=== PATIENT | female | born 1985 | race Caucasian/White ===

== ENCOUNTER 2023-05-28 05:21 | Emergency (ER) | payer OTHER, SELFPAY ==
--- NOTE | ~2023-05-28 | CT_ITS ---
CT of the Abdomen and Pelvis: Indication: Abdominal pain Technique: 2.5 mm axial scans were obtained through the abdomen and pelvis following intravenous adm inistration of 100 cc of Omnipaque 350. Dose reduction technique was used on this scan by utilizing a utomated exposure control and iterative reconstruction technique. The dose-length product (DLP) was 2 42.29 mGy-cm. Findings: Scans through the lung bases are unremarkable. The liver, spleen, pancreas, adrenals and kidneys are within normal limits. Gallbladder appears to be absent. No evidence of aortic aneurysm. No lymphadenopathy. No bowel obstruction or bowel wall thickening. There is evidence of probable prior bariatric surgery. Normal appendix. Images through the pelvis were performed. Urinary bladder unremarkable. Probable 3.5 cm right adnexal cyst.. No ascites. Impression: 3.5 cm adnexal cyst. No other significant findings. Reviewed, dictated and finalized at [facility]. Impression: 3.5 cm adnexal cyst. No other significant findings.
[2023-05-28 05:24] VITALS: BP 118/48; PULSE 73; RESP 18; TEMP 36.7; O2SAT 98
--- NOTE | 2023-05-28 05:39 | ED.GENADULT ---
HPI - General Adult General Chief complaint: Abdominal Pain <Jessee Rodriguez DO - Last Filed: 05/30/23 14:39> Stated complaint: Abdominal Pain <Jessee Rodriguez DO - Last Filed: 05/30/23 14:39> Time Seen by Provider: 05/28/23 06:57 <Jessee Rodriguez DO - Last Filed: 05/30/23 14:39> History of Present Illness HPI narrative: Swetha is a 37F with a PMH of anxiety, gastric bypass, and PUD with subsequent rupture and surgery 3 years ago that presented to the ED with abdominal pain. She reports central dull pain around the umbilicus that is TTP but does not radiate. She is nauseated but has not vomited. No diarrhea, dysuria, hematuria, CP, dyspnea or fevers. <Jessee Rodriguez DO - Last Filed: 05/30/23 14:39> Related Data Home medications: Home Medications Medication Instructions Recorded Confirmed cholecalciferol (vitamin D3) 25 2,000 unit PO DAILY 06/18/19 05/28/23 mcg (1,000 unit) capsule (Vitamin D3) cyanocobalamin (vitamin B-12) 1,000 mcg IM DAILY 06/18/19 05/28/23 1,000 mcg/mL injection solution alprazolam 0.5 mg tablet 0.5 mg PO PRN PRN Anxiety 05/28/23 05/28/23 trazodone 50 mg tablet See Rx Instructions .Route .COMPLEX 05/28/23 05/28/23 <Jessee Rodriguez DO - Last Filed: 05/30/23 14:39> Allergies/adverse reactions: Allergies Allergy/AdvReac Type Severity Reaction Status Date / Time No Known Allergies Allergy Unknown Verified 05/28/23 05:25 <Jessee Rodriguez DO - Last Filed: 05/30/23 14:39> Review of Systems Review of Systems: All systems reviewed & are unremarkable except as noted in HPI and below <Jessee Rodriguez DO - Last Filed: 05/30/23 14:39> PMFSH Past Medical History Medical History: Medical History Anxiety Gastric ulcer with hemorrhage and perforation Obesity (BMI 30-39.9) <Jessee Rodriguez DO - Last Filed: 05/30/23 14:39> Surgical History Surgical History: Surgical History History of laparotomy Hx of cholecystectomy Hx of gastric bypass <Jessee Rodriguez DO - Last Filed: 05/30/23 14:39> Family History Family History: Family History Grandparent No problems noted. Mother Cervical cancer <Jessee Rodriguez DO - Last Filed: 05/30/23 14:39> Social History Social History: Social History Smoking status: Former smoker Second hand tobacco smoke exposure: Yes Smoking end date: 08/13/11 Alcohol intake: never Substance use: never Gender identity (if verbalized by the patient): Female Spiritual care concerns: No <Jessee Rodriguez DO - Last Filed: 05/30/23 14:39> Exam Const: General: healthy appearing, no acute distress and alert <Jessee Rodriguez DO - Last Filed: 05/30/23 14:39> Nutritional Appearance: well nourished <Jessee Rodriguez DO - Last Filed: 05/30/23 14:39> Orientation/consciousness: patient oriented x3 <Jessee Rodriguez DO - Last Filed: 05/30/23 14:39> Limitations: no limitations <Jessee Rodriguez DO - Last Filed: 05/30/23 14:39> HENMT: Head: normal to inspection <Jessee Rodriguez DO - Last Filed: 05/30/23 14:39> Ears: external ears normal <Jessee Rodriguez DO - Last Filed: 05/30/23 14:39> Eyes: Conjunctivae: conjunctivae normal <Jessee Rodriguez DO - Last Filed: 05/30/23 14:39> Pupils: Equal, round and reactive pupils present <DO Munir Morse Last Filed: 05/30/23 14:39> EOM: EOMs intact bilaterally <Jessee Rodriguez, DO - Last Filed: 05/30/23 14:39> Neck: Neck: normal visual inspection <Jessee Rodriguez DO - Last Filed: 05/30/23 14:39> Chest: Chest palpation & inspection: normal inspection of the chest <Jessee Rodriguez, DO - Last Filed: 05/30/23 14:39> Resp: Effort & Inspection: normal respiratory effort <Jessee
[2023-05-28] MEDS: MORPHINE SULFATE (*CRX) 4 MG/ML INJ IV PUSH (05:48)
[2023-05-28] MEDS: ONDANSETRON INJ 4 MG/2 ML VIAL IV PUSH (05:48)
[2023-05-28 06:00] LABS: Appearance Urine Clear (Clear); Bilirubin Urine 1+ (Negative); Blood Urine 3+ (Negative); Color Urine Yellow (Yellow); Glucose Urine UA Negative (Negative); Ketones Urine Trace (Negative); Leukocyte Esterase Ur Trace LEU/UL (Negative); Nitrate Urine Negative (Negative); Protein Urine Negative (Negative); Specific Grav Ur >= 1.030 (1.010-1.020); Urobilinogen Urine 0.2 mg/dL (0.2-1.0); pH Urine 5.5 (5.0-8.0)
[2023-05-28 06:04] LABS: Basophils Absolute Auto 0.03 K/mm3 (0.00-0.10); Basophils Percent Auto 0.7 % (0.0-1.0); Eosinophils Absolute Auto 0.17 K/mm3 (0.02-0.50); Eosinophils Percent Auto 3.7 % (1.0-6.0); Hematocrit 35.4 % (35.0-49.0); Hemoglobin 11.6 g/dL (12.0-15.0); Immature Granulocyte Absolute 0.01 K/mm3 (0.00-0.00); Immature Granulocyte Percent A 0.2 % (0.0-0.0); Lymphocytes Absolute Auto 1.52 K/mm3 (1.10-4.50); Mean Corpuscular HGB Conc 32.8 g/dL (32.0-36.0); Mean Corpuscular Hemoglobin 26.5 pg (27.0-31.0); Mean Corpuscular Volume 80.8 fL (78.0-102.0); Mean Platelet Volume 10.3 fl (9.2-11.8); Monocytes Percent Auto 6.5 % (2.0-11.0); Neutrophils Absolute Auto 2.6 K/mm3 (1.7-7.2); Neutrophils Percent Auto 55.9 % (50.0-70.0); Platelet Count Result 154 K/mm3 (150-420); Red Blood Count 4.38 M/mm3 (4.20-5.40); White Blood Count 4.6 K/mm3 (4.8-10.8)
[2023-05-28 06:06] LABS: Add Urine Microscopic? YES; Bacteria Urine 1+ /hpf; Mucus Urine Few /lpf; Squamous Epithelial Cell Urine Few /hpf (Few)
[2023-05-28 06:06] LABS: Pregnancy On Board Control Positive; Urine Pregnancy Test Negative
[2023-05-28 06:16] LABS: INR 1.1; Prothrombin Time 11.5 Seconds (9.50-12.10)
[2023-05-28 06:19] LABS: Alanine Aminotransferase 14 U/L (14-59); Albumin Level 3.3 g/dL (3.4-5.0); Alkaline Phosphatase 66 U/L (46-116); Anion Gap 7 mmol/L (8-16); Aspartate Amino Transferase 31 U/L (15-37); Bilirubin,Total 0.8 mg/dL (0.00-1.00); Blood Urea Nitrogen 9 mg/dL (7-18); Calcium 9.1 mg/dL (8.5-10.1); Carbon Dioxide 28 mmol/L (21-32); Chloride 107 mmol/L (98-108); Estimated CRCL calculation 64 ml/min; Estimated Glomerular Filt Rate > 60; Glucose 87 mg/dL (70-99); Lipase 21 U/L (16-77); Osmolality Calculated 291 mOsm/kg (285-295); Potassium 3.5 mmol/L (3.5-5.1); Sodium 142 mmol/L (136-145); Total Protein 6.7 g/dL (6.4-8.2)
[2023-05-28 06:21] LABS: CRP < 0.5 mg/dL (0.0-0.9)
[2023-05-28 06:22] LABS: Lactic Acid Reflex 0.4 mmol/L (0.4-2.0)
[2023-05-28 06:54] LABS: Influenza A QL RT-PCR Negative (Negative); Influenza B QL RT-PCR Negative (Negative); SARS-CoV-2 RNA PCR Negative (Negative)
[2023-05-28 06:57] LABS: RSV RNA, RT-PCR Negative (Negative)
[2023-05-28 07:12] VITALS: BP 118/59; PULSE 61; RESP 16; TEMP 36.8; O2SAT 100
== END 2023-05-28 07:15 | disposition home or self-care (01) ==
PROVIDERS: Family Medicine; Emergency Provider Student in an Organized Health Care Education/Training Program; PCP Family Medicine
DX: R10.33 Periumbilical pain (principal); Z79.899 Other long term (current) drug therapy; Z87.891 Personal history of nicotine dependence; Z20.822 Contact with and (suspected) exposure to COVID-19
CPT/HCPCS: 36415; 74177; 80053; 81001; 81025; 83605; 83690; 85025; 85610; 86140; 87086; 87637; 96374; 96375; 99284; J2270; J2405; Q9967

== ENCOUNTER 2023-07-27 20:35 | Emergency (ER) | payer SELFPAY ==
--- NOTE | ~2023-07-27 | CT_ITS ---
EXAMINATION: CT abdomen pelvis w con DATE: 07/27/2023 21:35 INDICATION: 2 days of diffuse abdominal pain TECHNIQUE: Computed tomography (CT) of the abdomen and pelvis was performed with 100 mL Omnipaque-350 intravenous contrast. Automated exposure control and iterative reconstruction technique were employe d. The dose-length product was 268.73 mGy-cm. COMPARISON: 05/28/2023 and 03/22/2018 FINDINGS: Minimal discoid atelectasis at the bilateral lower lobes. Heart size is normal. No pericardial or ple ural effusion. Postoperative change of prior Ned-en-Y gastric bypass procedure. Gallbladder is not v isualized and likely surgically absent. Liver, spleen, pancreas, bilateral adrenal glands and kidneys are normal. No bowel obstruction. Normal appendix. No significant change in chronic 1.7 cm 4.0 cm ri ght adnexal cysts. Bladder and anteverted uterus are unremarkable. No free intraperitoneal gas or flu id. No pathologically enlarged abdominal or pelvic lymphadenopathy. Mild lower thoracic spondylosis. IMPRESSION: 1. No acute intra-abdominal/pelvic process. Normal appendix. 2. A couple chronic right adnexal cysts the larger measuring 4.0 cm. Reviewed, dictated and finalized at location A. [facility] TH[employer]
[2023-07-27 20:49] VITALS: BP 141/81; PULSE 68; RESP 18; TEMP 37.1; O2SAT 100
[2023-07-27 20:50] LABS: Basophils Absolute Auto 0.03 K/mm3 (0.00-0.10); Basophils Percent Auto 0.4 % (0.0-1.0); Eosinophils Absolute Auto 0.17 K/mm3 (0.02-0.50); Eosinophils Percent Auto 2.4 % (1.0-6.0); Hematocrit 38.1 % (35.0-49.0); Hemoglobin 12.4 g/dL (12.0-15.0); Immature Granulocyte Absolute 0.01 K/mm3 (0.00-0.00); Immature Granulocyte Percent A 0.1 % (0.0-0.0); Lymphocytes Absolute Auto 2.44 K/mm3 (1.10-4.50); Lymphocytes Percent Auto 34.4 % (18.0-42.0); Mean Corpuscular HGB Conc 32.5 g/dL (32.0-36.0); Mean Corpuscular Hemoglobin 26.6 pg (27.0-31.0); Mean Corpuscular Volume 81.8 fL (78.0-102.0); Mean Platelet Volume 9.9 fl (9.2-11.8); Monocytes Absolute Auto 0.46 K/mm3 (0.10-0.90); Monocytes Percent Auto 6.5 % (2.0-11.0); Neutrophils Percent Auto 56.2 % (50.0-70.0); Platelet Count Result 183 K/mm3 (150-420); Red Blood Count 4.66 M/mm3 (4.20-5.40); Red Cell Distribution Width 13.4 % (11.6-14.4); White Blood Count 7.1 K/mm3 (4.8-10.8)
[2023-07-27 20:51] LABS: Appearance Urine Clear (Clear); Bilirubin Urine Negative (Negative); Blood Urine Negative (Negative); Color Urine Light Yellow (Yellow); Glucose Urine UA Negative (Negative); Ketones Urine Negative (Negative); Leukocyte Esterase Ur Negative LEU/UL (Negative); Nitrate Urine Negative (Negative); Protein Urine Negative (Negative); Specific Grav Ur <= 1.005 (1.010-1.020); Urobilinogen Urine 0.2 mg/dL (0.2-1.0)
[2023-07-27 20:52] LABS: Add Urine Microscopic? NO
[2023-07-27] MEDS: ONDANSETRON INJ 4 MG/2 ML VIAL IV PUSH (20:55)
[2023-07-27] MEDS: SODIUM CHLORIDE 0.9% IV 1,000 ML 999 ML IV CONT (21:03)
[2023-07-27] MEDS: MORPHINE SULFATE (*CRX) 4 MG/ML INJ IV PUSH ×2 (21:04→21:53)
[2023-07-27 21:05] LABS: Alanine Aminotransferase 24 U/L (14-59); Albumin Level 3.7 g/dL (3.4-5.0); Alkaline Phosphatase 84 U/L (46-116); Anion Gap 4 mmol/L (8-16); Aspartate Amino Transferase 21 U/L (15-37); Bilirubin,Total 0.4 mg/dL (0.00-1.00); Blood Urea Nitrogen 8 mg/dL (7-18); Calcium 9.1 mg/dL (8.5-10.1); Carbon Dioxide 31 mmol/L (21-32); Chloride 101 mmol/L (98-108); Estimated CRCL calculation 55 ml/min; Estimated Glomerular Filt Rate > 60; Glucose 97 mg/dL (70-99); Lipase 29 U/L (16-77); Osmolality Calculated 280 mOsm/kg (285-295); Potassium 3.5 mmol/L (3.5-5.1); Sodium 136 mmol/L (136-145); Total Protein 7.4 g/dL (6.4-8.2)
[2023-07-27 21:08] LABS: Lactic Acid Reflex 0.7 mmol/L (0.4-2.0)
[2023-07-27 21:13] LABS: Pregnancy On Board Control Positive; Urine Pregnancy Test Negative
[2023-07-27 22:00] VITALS: BP 132/76; PULSE 88; RESP 18
[2023-07-27] MEDS: MAG HYDROX/ALUMINUM HYD/SIMETH 30 ML, PHENobarb/HYOSCY/ATROPINE/SCOP 32.4 MG, LIDOCAINE... PO (22:09)
--- NOTE | 2023-07-27 22:16 | ED.ABDPAIN ---
HPI - Abdominal Pain General Chief Complaint: Abdominal Pain Stated Complaint: Abd Pain Time Seen by Provider: 07/27/23 20:36 Source: patient Mode of arrival: ambulatory Limitations: no limitations History of Present Illness HPI narrative: Patient is a 38 year old female with a significant PMH that presents today with abdominal pain. Patient states that she has a history stomach ulceration 4 years ago. She does take daily Protonix. She has had abdominal pain for the last day. She states yesterday she was started also on pain hit her hard. She states that the pain is generalized. He denies any constipation or diarrhea. Denies any blood in the stool. MD elicited complaint: abdominal pain Pertinent past history: gastrointestinal bleeding Onset (ago): day(s) (1) Pain Consistency: constant Location: diffuse Severity: moderate Pain scale (0-10): 5 Quality: cramping and stabbing Radiation: none Migration to: no migration Exacerbating factors: nothing Relieving factors: nothing Associated symptoms: denies other symptoms Related Data Home Medications Medication Instructions Recorded Confirmed omeprazole 40 mg capsule,delayed 40 mg PO DAILY 07/27/23 07/27/23 release Allergies Allergy/AdvReac Type Severity Reaction Status Date / Time No Known Allergies Allergy Unknown Verified 05/28/23 05:25 Review of Systems Review of Systems: All systems reviewed & are unremarkable except as noted in HPI and below Constitutional: Constitutional: Reports no additional constitutional complaints Eyes: Eyes: Reports no additional eye complaints ENT: Reports system reviewed and no additional complaints, except as documented Cardiovascular: Cardiovascular: Reports no additional cardiovascular complaints Respiratory: Respiratory: Reports no additional respiratory complaints Gastrointestinal: Gastrointestinal: Reports as per HPI, Reports abdominal pain, Reports heartburn and Reports nausea Genitourinary: Genitourinary: Reports no additional female genitourinary complaints Musculoskeletal: Musculoskeletal: Reports no additional musculoskeletal complaints Integumentary/Breasts: Skin/Breast: Reports system reviewed and no additional complaints, except as docu Neurologic: Reports system reviewed and no additional complaints, except as documented Psychiatric: Psychiatric: Reports no additional psychiatric complaints Endocrine: Endocrine: Reports no additional endocrine complaints Hematologic/Lymphatic: Hematologic/Lymphatic: Reports no additional hematologic/lymphatic complaints PMFSH Past Medical History Medical History Anxiety Gastric ulcer with hemorrhage and perforation Obesity (BMI 30-39.9) Surgical History Surgical History History of laparotomy Hx of cholecystectomy Hx of gastric bypass Family History Family History Grandparent No problems noted. Mother Cervical cancer Social History Social History Smoking status: Former smoker Second hand tobacco smoke exposure: Yes Smoking end date: 08/13/11 Alcohol intake: never Substance use: never Gender identity (if verbalized by the patient): Female Spiritual care concerns: No Exam Const: General: healthy appearing Nutritional Appearance: well nourished Orientation/consciousness: patient oriented x3 HENMT: Head: normal to inspection Ears: external ears normal Face/Nose/Sinus: Normal external nose present Face and sinus: normal facial exam Mouth: Yes Normal oral and palatal mucosa present Teeth and gingiva: dentition normal Throat: posterior oropharynx normal Eyes: Conjunctivae: conjunctivae normal Pupils: Equal, round and reactive pupils present EOM: EOMs intact bilaterally Neck: Neck: normal visual inspection Ches
[2023-07-27 22:59] VITALS: BP 108/50; PULSE 67; RESP 18; TEMP 36.6; O2SAT 99
== END 2023-07-27 23:05 | disposition home or self-care (01) ==
PROVIDERS: Emergency Provider Family Medicine; PCP Family Medicine
DX: K52.9 Noninfective gastroenteritis and colitis, unspecified (principal); Z87.891 Personal history of nicotine dependence
CPT/HCPCS: 36415; 74177; 80053; 81003; 81025; 83605; 83690; 85025; 96361; 96374; 96375; 96376; 99284; A9270; J2270; J2405; J7030; Q9967

== ENCOUNTER 2025-06-15 09:43 | Emergency (ER) | payer OTHER, SELFPAY ==
--- NOTE | ~2025-06-15 | CT_ITS ---
CT abdomen pelvis w con Clinical History: R abd pain, hx gastric surgery . Comparison: CT abdomen pelvis 07/27/2023 Technique: Axial images lung bases to symphysis pubis IV contrast information not listed in PACS Coronal, sagittal reformats CT images acquired with automatic exposure control for dose reduction DLP: 293 mGy-cm Findings: Lung bases: Clear. Visualized heart and pericardium: Unremarkable. Liver: Steatosis. Mild biliary ductal dilatation after cholecystectomy. Gallbladder: Unremarkable. Spleen: Unremarkable. Pancreas: Unremarkable. Adrenal glands: Unremarkable. Kidneys: Right kidney- No hydronephrosis. No renal stones. Left kidney- No hydronephrosis. No renal stones. Distal esophagus/stomach: Gastric bypass. Mild wall thickening of excluded stomach but under-distended. Small bowel loops: Normal caliber and wall thickness. Colon: Normal caliber and wall thickness. Normal RLQ appendix. Nodes: No enlarged nodes. Peritoneum: No ascites. No free air. Urinary bladder: Unremarkable. Uterus: Unremarkable. Adnexa: No masses. Cystic focus right side pelvis persists. Bones: No acute bony abnormality. Soft tissues: Unremarkable. Aorta: No aneurysm or dissection. IVC: Unremarkable. Main portal vein/SMV/splenic vein: Patent. IMPRESSION: 1. Suspect gastritis of excluded stomach (gastric bypass surgery). 2. Otherwise no acute abnormality. Reviewed, dictated and finalized at location R. DULING REPRESENTATIVE
[2025-06-15 09:56] VITALS: BP 128/56; PULSE 71; RESP 18; TEMP 36.9; O2SAT 100
--- NOTE | 2025-06-15 10:13 | ED_ITS ---
HPI - Abdominal Pain General Chief Complaint: Abdominal Pain Stated Complaint: RLQ pain since yesterday. Time Seen by Provider: 06/15/25 09:53 Source: patient Mode of arrival: ambulatory Limitations: no limitations History of Present Illness HPI narrative: Patient is a 40-year-old female, with past medical history of gastric bypass surgery and cholecystectomy 8 years ago, PUD with hx of gastric perforation, who presents the ED with report of right-sided abdominal pain. Patient reports she frequently has issues with acid reflux since her gastric surgery. She does take omeprazole. She reports having slight discomfort in her right-sided abdomen yesterday, but reports having worsening pain throughout her right mid to upper abdomen since around 3:00 a.m. this morning. Denies nausea, vomiting, diarrhea, constipation or rectal bleeding, melena, fevers. Patient does note that she took a few doses of ibuprofen 2 weeks ago for dental infection. Related Data Home Medications ?Medication ?Instructions ?Recorded ?Confirmed ?Last Taken ?Type omeprazole 40 mg capsule,delayed 40 mg PO DAILY 07/27/23 Unknown History release Allergies Allergy/AdvReac Type Severity Reaction Status Date / Time No Known Allergies Allergy Unknown Verified 06/15/25 09:44 Review of Systems 2 Review of Systems: All systems reviewed & are unremarkable except as noted in HPI. All systems reviewed & are unremarkable except as noted in HPI and below PMFSH Past Medical History Medical History Gastric ulcer with hemorrhage and perforation Anxiety Obesity (BMI 30-39.9) Surgical History Surgical History (Updated 06/15/25 @ 14:22 by Alma Rojas PA-C) History of laparotomy Hx of cholecystectomy Hx of gastric bypass Family History Family History Grandparent No problems noted. Mother Cervical cancer Social History Social History Smoking status: Former smoker Second hand tobacco smoke exposure: Yes Smoking end date: 08/13/11 Alcohol intake: never Substance use: never Gender identity (if verbalized by the patient): Female Spiritual care concerns: No Exam 2 Narrative: GENERAL: Well appearing, well-nourished, non-toxic, in no acute distress. HEAD: Normocephalic, atraumatic. RESPIRATORY: Airway patent, respirations nonlabored. Clear to auscultation bilaterally, no rales, rhonchi, wheezing. CARDIOVASCULAR: Regular rate and rhythm without murmurs, rubs, or gallops. ABDOMINAL: Soft, mild tenderness in R mid/lateral abdomen, no rebound, nondistended. Normoactive BS. MUSCULOSKELETAL: Moves all extremities. No gross deformities. SKIN: Warm, dry, normal color. NEURO: A&O X3. Speech clear. Cranial nerves II-XII grossly intact. Steady gait. No ataxic movements. PSYCHIATRIC: Appropriate mood and affect. Normal interaction. Course Vital Signs Vital signs: Vital Signs Temperature 98.4 F 06/15/25 09:56 Pulse Rate 71 06/15/25 09:56 Respiratory Rate 18 06/15/25 09:56 Blood Pressure 128/56 L 06/15/25 09:56 Pulse Oximetry 100 06/15/25 09:56 Oxygen Delivery Room Air 06/15/25 09:56 Temperature 98.4 F 06/15/25 09:56 Pulse Rate 54 L 06/15/25 14:44 Respiratory Rate 18 06/15/25 14:44 Blood Pressure 101/63 06/15/25 14:44 Pulse Oximetry 100 06/15/25 14:44 Oxygen Delivery Room Air 06/15/25 09:56 MDM - Abdominal Pain MDM Narrative Medical decision making narrative: Patient presented to ED with R sided abd pain since yesterday, worsening this morning. Hx of gastric bypass, PUD with perforated ulcer. VSS upon arrival. Patient in no acute distress. Laboratory studies without leukocytosis. Mild anemia noted. Appears fairly similar to previous records, but no recent records to compare to. Denying any recent bleeding, rectal bleeding, melena. CMP is unremarkable. Normal LFTs and lipase. Lactic acid within normal range at 0.8. Stable electrolytes. UA w/o signs of infection. EKG w/ NSR no ischemic changes. Trop undetectable. CT scan of abdomen/pelvis was obtained, showing suspected gastritis of the excluded stomach with mild wall thickening. Discussed case with Dr. Aragon, GI, recommended f/u for endoscopy, but will also need f/u with bariatric surgery for eval of excluded stomach. Discussed lab and imaging findings, GI recommendations. She is feeling improved with supportive therapy. She is on omeprazole. Will start patient on sucralfate for additional gastritis relief. Discussed avoiding NSAIDs, aggravating foods/drinks. Discussed close follow-up with GI. Discussed strict return precautions. Patient is in agreement with plan, feels comfortable going home. Requesting work note. Discharged in stable condition. Medical Records Attestation: I reviewed the patient's medical records. Lab Data Attestation: I reviewed the patient's lab results. 06/15/25 10:12 06/15/25 10:12 Labs: Lab Results 06/15/25 06/15/25 06/15/25 Range/Units 10:12 10:18 11:24 WBC 7.0 (4.5-10.0) K/mm3 RBC 4.53 (4.2-5.4) M/mm3 Hgb 10.7 L (12.0-15.0) g/dL Hct 34.7 L (37.0-47.0) % MCV 76.6 L (80-100) fl MCH 23.6 L (26-34) pg MCHC 30.8 L (32-36) g/dl RDW 14.7 H (11.5-14.5) % Plt Count 226 (150-375) k/mm3 MPV 10.3 (7.4-10.4) fl Immature Gran % (Auto) 0.1 (0-0.5) % Neut % (Auto) 63.5 (45.5-73.1) % Lymph % (Auto) 24.5 (18.3-44.2) % Crawford % (Auto) 7.2 (2.6-8.5) % Eos % (Auto) 4.3 (0-4.4) % Baso % (Auto) 0.4 (0.2-1.2) % Lymph # (Auto) 1.71 (0.9-3.2) K/mm3 Crawford # (Auto) 0.5 (0.1-0.6) K/mm3 Eos # (Auto) 0.3 (0-0.3) K/mm3 Baso # (Auto) 0.0 (0.0-0.1) K/mm3 Abs Immat Gran (auto) 0.01 (0.00-0.031) K/mm3 Absolute Neuts (auto) 4.4 (1.3-6.7) K/mm3 Absolute Nucleated RBC 0.000 (0.0-0.012) K/mm3 Nucleated RBC % 0.0 (0.0-0.2) % Sodium 139 (137-145) mmol/L Potassium 3.8 (3.4-5.0) mmol/L Chloride 106 (98-107) mmol/L Carbon Dioxide 25 (22-30) mmol/L Anion Gap 8 (4-12) mmol/L BUN 14 (7-17) mg/dL Creatinine 0.81 (0.7-1.0) mg/dL Estim Creat Clear Calc 73 ml/min Estimated GFR > 60 (59 - ) Glucose 75 (65-110) mg/dL Lactic Acid 0.9 (0.7-2.0) mmol/L Calcium 9.4 (8.4-10.2) mg/dL Total Bilirubin 0.4 (0.2-1.3) mg/dL AST 32 (14-36) U/L ALT 14 (6-35) U/L Alkaline Phosphatase 76 (38-126) U/L Troponin I < 0.012 (0.000-0.034) ng/mL Total Protein 7.7 (6.3-8.2) g/dL Albumin 4.2 (3.5-5.1) g/dL Lipase 77 (23-300) U/L Urine Color Yellow (Yellow) Urine Appearance Clear (Clear) Urine pH 6.5 (5.0-9.0) Ur Specific [place] 1.021 (1.001-1.035) Urine Protein Negative (Negative) mg/dL Urine Glucose (UA) Negative (Negative) mg/dL Urine Ketones Negative (Negative) mg/dL Ur Blood (Man) Negative (Negative) Urine Nitrate Negative (Negative) Urine Bilirubin Negative (Negative) Urine Urobilinogen 2.0 H (<2.0) mg/dL Add Ur Microanalysis Reviewed Leukocyte Esterase Rfl 1+ H (Negative) MIHAI/UL Urine RBC 0-2 (0-2) /hpf Urine WBC 0-5 (0-3) /hpf Ur Squamous Epith Cells Occasional (Few) /hpf Urine Bacteria None seen /hpf Urine Casts 0-2 POC Urine HCG, Qual (Negative) 06/15/25 Range/Units 11:42 WBC (4.5-10.0) K/mm3 RBC (4.2-5.4) M/mm3 Hgb (12.0-15.0) g/dL Hct (37.0-47.0) % MCV (80-100) fl MCH (26-34) pg MCHC (32-36) g/dl RDW (11.5-14.5) % Plt Count (150-375) k/mm3 MPV (7.4-10.4) fl Immature Gran % (Auto) (0-0.5) % Neut % (Auto) (45.5-73.1) % Lymph % (Auto) (18.3-44.2) % Crawford % (Auto) (2.6-8.5) % Eos % (Auto) (0-4.4) % Baso % (Auto) (0.2-1.2) % Lymph # (Auto) (0.9-3.2) K/mm3 Crawford # (Auto) (0.1-0.6) K/mm3 Eos # (Auto) (0-0.3) K/mm3 Baso # (Auto) (0.0-0.1) K/mm3 Abs Immat Gran (auto) (0.00-0.031) K/mm3 Absolute Neuts (auto) (1.3-6.7) K/mm3 Absolute Nucleated RBC (0.0-0.012) K/mm3 Nucleated RBC % (0.0-0.2) % Sodium (137-145) mmol/L Potassium (3.4-5.0) mmol/L Chloride (98-107) mmol/L Carbon Dioxide (22-30) mmol/L Anion Gap (4-12) mmol/L BUN (7-17) mg/dL Creatinine (0.7-1.0) mg/dL Estim Creat Clear Calc ml/min Estimated GFR (59 - ) Glucose (65-110) mg/dL Lactic Acid (0.7-2.0) mmol/L Calcium (8.4-10.2) mg/dL Total Bilirubin (0.2-1.3) mg/dL AST (14-36) U/L ALT (6-35) U/L Alkaline Phosphatase (38-126) U/L Troponin I (0.000-0.034) ng/mL Total Protein (6.3-8.2) g/dL Albumin (3.5-5.1) g/dL Lipase (23-300) U/L Urine Color (Yellow) Urine Appearance (Clear) Urine pH (5.0-9.0) Ur Specific [place] (1.001-1.035) Urine Protein (Negative) mg/dL Urine Glucose (UA) (Negative) mg/dL Urine Ketones (Negative) mg/dL Ur Blood (Man) (Negative) Urine Nitrate (Negative) Urine Bilirubin (Negative) Urine Urobilinogen (<2.0) mg/dL Add Ur Microanalysis Leukocyte Esterase Rfl (Negative) MIHAI/UL Urine RBC (0-2) /hpf Urine WBC (0-3) /hpf Ur Squamous Epith Cells (Few) /hpf Urine Bacteria /hpf Urine Casts POC Urine HCG, Qual Negative (Negative) Imaging Data Attestation: I personally reviewed and interpreted this imaging study as follows: Radiologist's impression: ITS Impressions Abdomen/Pelvis CT 06/15/25 12:17 IMPRESSION: 1. Suspect gastritis of excluded stomach (gastric bypass surgery). 2. Otherwise no acute abnormality. ECG Data EKG #1: Attestation: I personally reviewed and interpreted this ECG as follows: ECG completion date: 06/15/25 ECG completion time: 10:48 normal rate (61), sinus rhythm and no ST changes Discharge Plan Discharge Clinical Impression: History of gastric bypass Gastritis Qualifiers: Gastritis type: unspecified gastritis Chronicity: acute Gastritis bleeding: w [facility] bleeding Qualified Code(s): K29.00 - Acute gastritis without bleeding Patient Disposition: Home Condition: Stable Instructions: Antibiotic Form, Gastritis (ED), Diet for Stomach Ulcers and Gastritis (ED), Gastroenteritis (ED), Acute Nausea and Vomiting (ED) Additional Instructions: Continue omeprazole daily. Take sucralfate as prescribed for additional management of gastritis. You will likely need to follow-up with a GI specialist for endoscopy. You can follow-up with our GI specialists here, but also recommend follow-up with a bariatric specialist for evaluation of your bypassed stomach. Avoid NSAIDs, acidic foods, alcohol. Return to the ED if you experience worsening or severe pain, unable to keep down food or drink, blood in stool, dark black stools, persistent fevers, difficulty breathing, or any other symptoms of concern. Patient Language: Swedish Prescriptions: New sucralfate 1 gram tablet 1 g PO QID Qty: 120 0RF No Action omeprazole 40 mg Capsule,Delayed Release(Dr/Ec) 40 mg PO DAILY Follow-up/Referrals: Dejan Aragon MD [Physician, Gastroenterology] Referral Note: DENY Estrada,MD Leonel [Primary Care Provider, Family Practice] Stand Alone Forms: Work/School Release IP Time of Disposition: 14:22
[2025-06-15] MEDS: ONDANSETRON INJ 4 MG/2 ML VIAL IV PUSH (10:18)
[2025-06-15] MEDS: FAMOTIDINE 20 MG/2 ML VIAL IV PUSH (10:18)
[2025-06-15] MEDS: SODIUM CHLORIDE 0.9% IV 1,000 ML 999 ML IV CONT ×2 (10:19→12:01)
[2025-06-15] MEDS: MORPHINE SULFATE (*CRX) 4 MG/ML INJ IV PUSH ×2 (10:19→11:32)
[2025-06-15 10:22] LABS: Hematocrit 34.7 % (37.0-47.0); Hemoglobin 10.7 g/dL (12.0-15.0); Immature Granulocyte Percent A 0.1 % (0-0.5); Lymphocytes Absolute Auto 1.71 K/mm3 (0.9-3.2); Mean Corpuscular HGB Conc 30.8 g/dl (32-36); Mean Corpuscular Hemoglobin 23.6 pg (26-34); Mean Corpuscular Volume 76.6 fl (80-100); Nucleated Red Blood Cells Absolute Auto 0.000 K/mm3 (0.0-0.012); Nucleated Red Blood Cells Perc 0.0 % (0.0-0.2); Platelet Count Result 226 k/mm3 (150-375); Red Blood Count 4.53 M/mm3 (4.2-5.4); White Blood Count 7.0 K/mm3 (4.5-10.0)
--- OUTSIDE RECORDS SUMMARY | 2025-06-15 10:27 | XMS_ITS | Clinical Summary ---
Author Organization [facility] Address [address] [place] [address] Care Team Providers Care Technical Agronomist Name Role Phone Leonel Estrada MD Primary Care Provider Trice Pat MD Unavailable [phone] Allergies No known active allergies Medications multivitamin capsule Take 1 capsule by mouth daily Active acetaminophen 500 mg capsuleIndicati ons:Pain Take 2 capsules (1,000 mg total) by mouth every 6 (six) hours as needed for pain 30 tablet 12/15/2019 Active ferrous sulfate 325 mg (65 mg of elemental iron) tablet Take by mouth 12/07/2017 Ac tive omeprazole (PriLOSEC) 20 mg capsule Take 1 capsule (20 mg total) by mouth 2 (two) times a day Active polyethylene glycol (MIRALAX) 17 gram/dose bulk powder Take 17 g by mouth daily Active cyanocobalamin, vitamin B-12, 500 mcg tablet,disinteg rating Place 500 mcg under the tongue daily Active calcium carbonate-vitam in D3 1,250 mg (500 mg elemental)-125 unit per tabletIndicatio ns:Hypocalcemia Prevention,Prev ention of Vitamin D Deficiency Take 2 tablets by mouth 3 (three) times a day with meals Active docusate sodium (COLACE) 100 mg capsuleIndicati ons:constipatio n Take 1 capsule (100 mg total) by mouth 2 (two) times a day 30 capsule 07/30/2023 Active Active Problems Problem Noted Date Diagnosed Date Small bowel obstruction 11/15/2023 Partial small bowel obstruction 07/28/2023 History of gastric bypass 12/15/2019 GERD (gastroesophageal reflux disease) 0 Perforated ulcer 12/12/2019 Overview (12/12/2019): Added automatically from request for surgery [id number] Peritonitis 12/12/2019 Overview (12/12/2019): Added automatically from request for surgery [id number] Surgical History Surgery Date Site/Laterality Comments LAPAROSCOPIC GASTRIC BYPASS 08/13/2016 - 08/12/2017 Dr Lawrence Ornelas LAPAROSCOPIC CHOLECYSTECTOMY 08/13/2016 - 08/12/2017 During gastric bypass DIAGNOSTIC LAPAROSCOPY with internal hernia repair DIAGNOSTIC LAPAROSCOPY with viviana patch Medical History Medical History Date Comments Morbid obesity (HCC) Preop wt - 263lb (BMI 46.7), opal 157lb (BMI 27.8) GERD (gastroesophageal reflux disease) On PPI Family History Medical History Relation Name Comments Heart disease Paternal Grandfather triple bypass Relation Name Status Comments Paternal Grandfather Social History Tobacco Use Types Packs/Day Years Used Date Smoking Tobacco: Former Smokeless Tobacco: Never Comments:quit >10y prior, <0 .25PPD Alcohol Use Standard Drinks/Week Comments Yes 0 (1 standard drink = 0.6 oz pur e alcohol) occasional AUDIT-C Answer Date Recorded Q1: How often do you have a drink containing alc ohol? Monthly or less 07/29/2023 Q2: How many drinks containi ng alcohol do you have on a typical day when you are drinking? 3 or 4 07/29/2023 Q3: How often do you have si x or more drinks on one occasion? Less than monthly 07/29/2023 PHQ-2 Answer Date Recorded PHQ-2 Total Score (If total score is 3 or more points, staff should administer the PHQ-9) 0 11/15/2023 Personal Safety Answer Date Recorded Have you ever been in or are you currently in a harmful physical or emotional relationship or is someone making you feel afraid or unsafe? Denies 11/15/2023 Comments No Sex and Gender Information Value Date Recorded Sex Assigned at Not on file Legal Sex Female 6:58 AM CDT Gender Identity Not on file Sexual Orientation Not on file Last Filed Vital Signs Vital Sign Reading Time Taken Comments Blood Pressure 102/50 11/17/2023 10:00 AM CDT Pulse 76 11/17/2023 10:00 AM CDT Temperature 36.6 C (97.9 F) 11/17/2023 10:00 AM CDT Respiratory Rate 18 11/17/2023 10:00 AM CDT Oxygen Saturation 100% 11/17/2023 10:00 AM CDT Inhaled Oxygen Concentration - - Weight 61.2 kg (135 lb) 11/15/2023 4:25 PM CDT Height 160 cm (5' 2.99) 11/15/2023 4:25 PM CDT Body Mass Index 23.92 11/15/2023 4:25 PM CDT Plan of Treatment Health Maintenance Due Date Last Done Comments Breast Cancer Screening-Mammogram 1983 Cervical Cancer Screening 1983 Hepatitis C Screening 1983 DTaP/Tdap/Td Vaccine (1 - Tdap) 1994 Varicella Vaccines (1 of 2 - 13+ 2-dose series) 1996 Hepatitis B Screening 2001 Regular Well Visit/Exam 18-64 2001 HPV Vaccines (1 - 3-dose SCD M series) 2010 Depression Screening 11/13/2024 11/14/2023 Influenza Vaccine (#1) 2025 Pneumococcal vaccine <65 Aged Out No longer eligible based on patient's age to complete this topic Insurance IDPA Advance Directives For more information, please contact: [phone] * Full Code (Latest Code Status on File) Date Activated Date Inactivated Comments 11/15/2023 4:24 PM 11/17/2023 7:08 PM * Full Code Date Activated Date Inactivated Comments 07/28/2023 9:47 PM 07/30/2023 4:29 PM * Full Code Date Activated Date Inactivated Comments 12/12/2019 10:59 AM 12/15/2019 4:42 PM Care Teams Technical Agronomist Relationship Specialty Start Date End Date Leonel Estrada MD [address] [place] [id number] PCP - General Family Medicine 07/30/23 Trice Pat MD [address] [phone] [place] [address] Fellow General Surgery 11/17/23
--- OUTSIDE RECORDS SUMMARY | 2025-06-15 10:27 | XMS_ITS | Clinical Summary ---
Author Organization [facility] Address [facility] [place] [address] Care Team Providers Care Records Management Manager Name Role Phone Unavailable Primary Care Provider Unavailabl e Source Comments [facility],non-owned Affiliates and Associated Physician Practices is amultiple site organization consisting of ambulatory clinics and hospital sitesin [place], [place], [place] and [place]. This disclosure is being madepursuant to the Care Everywhere program and may not contain all information available regarding this patient. Last updated 18.[facility] Allergies No known active allergies Medications * Be aware that medications may not be up to date on this document. Alwaysverify current medications with the patient. ferrous sulfate 325 (65 FE) MG tablet 8 Active VIT W/ FE BISG-FA PO 8 Active omeprazole (PRILOSEC) 10 MG capsule Active Ergocalciferol (VITAMIN D2 PO) 8 Active aspirin (ASPIRIN) 81 MG chew tablet Take 81 mg by mouth once daily Active insulin NPH (HUMULIN N; NOVOLIN N) vial Inject 16 Units subcutaneously at bedtime Active Active Problems Problem Noted Date Diagnosed Date History of gastric bypass 02/11/2019 Resolved Problems Problem Noted Date Diagnosed Date Resolved Date IUGR (intrauterine growth re striction) affecting care of mother, third trimester, not applicable or unspecified fetus 06/09/201910/2018 complicated by fet al multicystic dysplastic kidney 05/05/2019 07/15/2019 Depression screening - Initi al at [facility] on 03.10.2019 03/10/2019 07/15/2019 Overview (06/09/2019): 03/10/2019 Swetha Felix was screened for depression using the [place] Depression Scale (EPDS) at her [facility] initial evaluation on 03/10/2019. Her initial score at baseline was 0. Based off of her score of 0, Swetha does not warrant follow up with [facility] licensed social worker, aV Millan. Patient will continue to be screened throughout , at intervals no closer than two weeks, for continued surveillance and early identification of depression until delivery. Patient reports mental health history. Diagnoses include major depressive disorder and borderline personality disorder. 05.05.19: Follow-up EPDS score=0 06.09.19: Follow-up EPDS score = 0 abnormality in pregnan cy - Unilateral dysplastic kidney with dominant cysts 02/18/2019 Overview (06/10/2019): Images from the original note were not included. [facility] PATIENT--PLEASE CALL [phone] (ex 2) IF TRIAGED OR ADMITTED Care Provider: Dr. Linda Christine [facility] consultants involved: RN-Jourdan/Hedy; MFM- Radha; Urology-Kirby Diagnosis: Unilateral (Right) dysplastic kidney with dominant cysts follow up: per Urology consult on 03.10: - deliver at location of choice - antibiotic prophylaxis recommended given unclear clinical course / dx - RBUS and clinic visit at >2do but < 1mo - is likely to need VCUG and / or renal scan over the first 2-3 months of life to ascertain an exact diagnosis. - contact for further recommendation if the PNUS appearance of the right or left kidney change significantly on future surveillance Vp Medical: Lupis David in [place], [place] Planned surveillance: Routine care with OB. Twice weekly testing (BPP/NST) starting at 32 weeks for IUGR, GDM at [place]. Repeat growth in 2 weeks (at 38 weeks) Delivery location: [place] Mode: Per usual OB indications GA: 39 weeks (or sooner as clinically indicated) Python Django Developer Concerns: Care plan based on evaluation and is subject to change based on assessment. See Images or Cardiac under Chart Review for US/ ECHO/ MRI reports. AMA (advanced maternal age) multigravida 35+ 9 07/15/2019 Social History Tobacco Use Types Packs/Day Years Used Date Smoking Tobacco: Never Smokeless Tobacco: Never Alcohol Use Standard Drinks/Week Comments No 0 (1 standard drink = 0.6 oz pur e alcohol) Comments No Sex and Gender Information Value Date Recorded Sex Assigned at Female 07/30/2023 6:18 PM SCORER HELPER Legal Sex Female 9:17 AM CDT Gender Identity Female 07/30/2023 6:18 PM SCORER HELPER Sexual Orientation Straight 07/30/2023 6: 18 PM SCORER HELPER Last Filed Vital Signs Vital Sign Reading Time Taken Comments Blood Pressure 106/59 06/24/2019 11:31 AM SCORER HELPER Pulse 73 06/24/2019 11:31 AM SCORER HELPER Temperature - - Respiratory Rate - - Oxygen Saturation - - Inhaled Oxygen Concentration - - Weight 89 kg (196 lb 3.4 oz) 06/09/2019 10:40 AM CDT Height 160 cm (5' 3) 03/10/2019 11:00 AM CDT Body Mass Index 34.76 03/10/2019 11:00 AM CDT Plan of Treatment Health Maintenance Due Date Last Done Comments LIPID TESTING 1983 MAMMOGRAM 1983 HIV SCREENING 1998 HEPATITIS C SCREENING 05/31/2001 DTAP/TDAP/TD VACCINES (1 - Tdap) 2002 HEPATITIS B VACCINE (1 of 3 - 19+ 3-dose series) 2002 HPV VACCINE (1 - 3-dose SCDM series) 2010 DEPRESSION SCREENING 08/13/2024 COVID-19 VACCINE (1 - 2023-2 5 season) 2025 INFLUENZA VACCINE (#1) 2025 ZOSTER VACCINE (1 of 2) 2033 HIB VACCINE Aged Out No longer eligi ble based on patient's age to complete this topic MENINGOCOCCAL (Group B) VACC INE SHARED DECISION-MAKING Aged Out No longer eligibl e based on patient's age to complete this topic MENINGOCOCCAL GROUPS A/C/Y/W VACCINE Aged Out No longer eligible b ased on patient's age to complete this topic PNEUMOCOCCAL VACCINE Aged Out No long er eligible based on patient's age to complete this topic Insurance ANTH
[2025-06-15 10:34] LABS: Alanine Aminotransferase 14 U/L (6-35); Albumin Level 4.2 g/dL (3.5-5.1); Alkaline Phosphatase 76 U/L (38-126); Anion Gap 8 mmol/L (4-12); Aspartate Amino Transferase 32 U/L (14-36); Bilirubin,Total 0.4 mg/dL (0.2-1.3); Blood Urea Nitrogen 14 mg/dL (7-17); Calcium 9.4 mg/dL (8.4-10.2); Carbon Dioxide 25 mmol/L (22-30); Chloride 106 mmol/L (98-107); Estimated CRCL calculation 73 ml/min; Estimated Glomerular Filt Rate > 60; Glucose 75 mg/dL (65-110); Lipase 77 U/L (23-300); Potassium 3.8 mmol/L (3.4-5.0); Sodium 139 mmol/L (137-145); Total Protein 7.7 g/dL (6.3-8.2)
--- NOTE | 2025-06-15 10:42 | ECG_ITS ---
Test Date: 2025-06-15 10:48:49 Measurements Intervals Downs Rate: 61 P: 54 [place]: 129 QRS: 74 QRSD: 88 T: 62 QT: 399 QTc: 403 Interpretive Statements SINUS RHYTHM No previous ECG available for comparison Electronically Signed On 06-15-2025 11:24:39 RETAIL ASSOCIATE MANAGER BILINGUAL by Trevon Flanagan M.D.
--- NOTE | 2025-06-15 10:45 | PC.NURSE ---
Patient began complaining of extreme pain in her abdomen under her rib cage. Provider aware and EKG ordered
--- OUTSIDE RECORDS SUMMARY | 2025-06-15 11:19 | XMS_ITS | Clinical Summary ---
Author Organization [facility] Address [facility] [place] [address] Care Team Providers Care Apiculturist Name Role Phone Unavailable Primary Care Provider Unavailabl e Source Comments [facility],non-owned Affiliates and Associated Physician Practices is amultiple site organization consisting of ambulatory clinics and hospital sitesin [place], [place], [place] and [place]. This disclosure is being madepursuant to the Care Everywhere program and may not contain all information available regarding this patient. Last updated 18.[facility] Allergies No known active allergies Medications * [...] 07/15/2019 Depression screening - Initi al at [facility] on 03.10.2019 03/10/2019 07/15/2019 Overview (06/09/2019): 03/10/2019 Swetha Felix was screened for depression using the [place] Depression Scale (EPDS) at her [facility] initial evaluation on 03/10/2019. Her initial score at baseline was 0. Based off of her score of 0, Swetha does not warrant follow up with [facility] marriage and family social worker, Va Millan. Patient will continue to be screened [...] from the original note were not included. [facility] PATIENT--PLEASE CALL [phone] (ex 2) IF TRIAGED OR ADMITTED Care Provider: Dr. Lnida Christine [facility] consultants involved: RN-Jourdan/Hedy; MFM- Radha; Urology-Kirby Diagnosis: [...] left kidney change significantly on future surveillance Bead Maker: Lupis David in [place], [place] Planned surveillance: Routine care with OB. Twice weekly testing (BPP/NST) starting at 32 weeks for IUGR, GDM at [facility]. Repeat growth in 2 weeks (at 38 weeks) Delivery location: [place] Mode: Per usual OB indications GA: 39 weeks (or sooner as clinically indicated) [employer] Concerns: Care plan based on evaluation and [...] Sex Assigned at Female 07/30/2023 6:18 PM MOBILE PARAMEDICAL EXAMINER Legal Sex Female 9:17 AM CDT Gender Identity Female 07/30/2023 6:18 PM MOBILE PARAMEDICAL EXAMINER Sexual Orientation Straight 07/30/2023 6: 18 PM MOBILE PARAMEDICAL EXAMINER Last Filed Vital Signs Vital Sign Reading Time Taken Comments Blood Pressure 106/59 06/24/2019 11:31 AM MOBILE PARAMEDICAL EXAMINER Pulse 73 06/24/2019 11:31 AM MOBILE PARAMEDICAL EXAMINER Temperature - - Respiratory Rate - - [...]
--- OUTSIDE RECORDS SUMMARY | 2025-06-15 11:19 | XMS_ITS | Clinical Summary ---
Author Organization [facility] Address [address] [place] [address] Care Team Providers Care Extracorporeal Circulation Specialist Name Role Phone Leonel Estrada MD Primary Care Provider Trice Pat MD Unavailable [phone] Allergies No known active allergies Medications multivitamin [...] (12/12/2019): Added automatically from request for surgery [id number] Peritonitis 12/12/2019 Overview (12/12/2019): Added automatically from request for surgery [id number] Surgical History Surgery Date Site/Laterality Comments LAPAROSCOPIC [...] Advance Directives For more information, please contact: [phone] * Full Code (Latest Code Status on File) Date Activated Date Inactivated Comments 11/15/2023 4:24 PM 11/17/2023 7:08 PM * Full Code Date Activated Date Inactivated Comments 07/28/2023 9:47 PM 07/30/2023 4:29 PM * Full Code Date Activated Date Inactivated Comments 12/12/2019 10:59 AM 12/15/2019 4:42 PM Care Teams Extracorporeal Circulation Specialist Relationship Specialty Start Date End Date Leonel Estrada MD [address] [place] [id number] PCP - General Family Medicine 07/30/23 Trice Pat MD [address] [phone] [place] [address] Fellow General Surgery 11/17/23
[2025-06-15 11:26] VITALS: BP 103/50; PULSE 63; RESP 16; O2SAT 100
[2025-06-15 11:27] LABS: Troponin I < 0.012 ng/mL (0.000-0.034)
[2025-06-15 11:48] LABS: BEDSIDEPREGUCG Negative (Negative)
[2025-06-15 11:55] LABS: Add Urine Microscopic? YES; Appearance Urine Clear (Clear); Glucose Urine UA Negative (Negative); Leukocyte Esterase Ur 1+ LEU/UL (Negative); Need Manual Microscopic Reviewed; Nitrate Urine Negative (Negative); Non Pathogenic Casts 0-2; Specific Grav Ur 1.021 (1.001-1.035)
[2025-06-15 13:03] VITALS: BP 114/62; PULSE 53; RESP 18; O2SAT 100
[2025-06-15 14:44] VITALS: BP 101/63; PULSE 54; RESP 18; O2SAT 100
== END 2025-06-15 15:00 | disposition home or self-care (01) ==
PROVIDERS: Emergency Provider Physician Assistant; PCP Family Medicine
DX: K29.00 Acute gastritis without bleeding (principal); Z98.84 Bariatric surgery status; F41.9 Anxiety disorder, unspecified
CPT/HCPCS: 36415; 74177; 80053; 81001; 81025; 83605; 83690; 84484; 85025; 87086; 93005; 96361; 96374; 96375; 96376; 99284; J2270; J2405; J7030; Q9967